=== PATIENT | male | born 1940 | race Caucasian/White ===

== ENCOUNTER 2018-04-01 12:40 | Observation (INO) | payer OTHER, MEDICARE ==
[2018-04-01] MEDS ORDERED: ASPIRIN 81 MG PO STA (12:57)
[2018-04-01] MEDS ORDERED: NITROGLYCERIN OINT 1 INCH/GM PACKET TOPICAL STA (12:57)
--- NOTE | 2018-04-01 13:03 | ED ---
General Adult HPI - General Chief complaint: Chest Pain Stated complaint: chest pain Time Seen by Provider: 04/01/18 12:40 Source: patient, RN notes reviewed Mode of arrival: wheelchair Limitations: no limitations - History of Present Illness Initial comments: This is a 77-year-old male who presents emergency department with past medical history significant for bypass surgery and 2 stent placements since the bypass. Patient also has high blood pressure and high cholesterol. Patient states he hasn't smoked in 35 years. Patient comes in today because he has been having some left-sided chest pain which radiates to his left arm and into his back. Patient states she's been having this for the last 2 days. Patient states the episodes last approximately 10 minutes. Patient noted today that he had chest pain he took a nitroglycerin and it seemed to stop the pain. Patient denies any shortness of breath with the pain patient denies any diaphoretic episodes. Patient denied any nausea vomiting diarrhea. Patient denies any abdominal pain. Patient denies any swelling to the legs. Patient denies any calf tenderness. - Related Data Home Medications Medication Instructions Recorded Confirmed Aspirin 81 mg PO DAILY 12/21/15 04/01/18 Carboxymethylcellulose Sodium 1 drop BOTH EYES Q4H PRN 12/21/15 04/01/18 [Refresh Tears] Isosorbide Mononitrate ER [Imdur] 120 mg PO DAILY 12/21/15 04/01/18 Lisinopril [Prinivil] 10 mg PO DAILY 12/21/15 04/01/18 Loratadine [Claritin] 10 mg PO DAILY 12/21/15 04/01/18 amLODIPine [Norvasc] 5 mg PO DAILY 12/21/15 04/01/18 cycloSPORINE [Restasis] 1 drop BOTH EYES BID 12/21/15 04/01/18 Allergies Allergy/AdvReac Type Severity Reaction Status Date / Time shellfish derived [Shellfish] Allergy Unknown Verified 04/01/18 13:18 [id number] Reductase AdvReac Unknown Verified 04/01/18 13:18 Inhibitor Review of Systems ROS Statement: Those systems with pertinent positive or pertinent negative responses have been documented in the HPI. ROS Other: All systems not noted in ROS Statement are negative. Past Medical History Past Medical History: Coronary Artery Disease (CAD), Chest Pain / Angina, Hyperlipidemia, Hypertension Additional Past Medical History / Comment(s): GOUT History of Any Multi-Drug Resistant Organisms: None Reported Past Surgical History: Coronary Bypass/CABG, Heart Catheterization With Stent Additional Past Surgical History / Comment(s): thoracotomy Past Psychological History: No Psychological Hx Reported Smoking Status: Former smoker Past Alcohol Use History: Rare Past Drug Use History: None Reported General Exam - General Exam Comments Initial Comments: GENERAL: Patient is well-developed and well-nourished. Patient is nontoxic and well- hydrated and is in mild distress. ENT: Neck is soft and supple. No significant lymphadenopathy is noted. Oropharynx is clear. Moist mucous membranes. Neck has full range of motion without eliciting any pain. EYES: The sclera were anicteric and conjunctiva were pink and moist. Extraocular movements were intact and pupils were equal round and reactive to light. Eyelids were unremarkable. PULMONARY: Unlabored respirations. Good breath sounds bilaterally. No audible rales rhonchi or wheezing was noted. CARDIOVASCULAR: There is a regular rate and rhythm without any murmurs gallops or rubs. ABDOMEN: Soft and nontender with normal bowel sounds. No palpable organomegaly was noted. There is no palpable pulsatile mass. SKIN: Skin is clear with no lesions or rashes and otherwise unremarkable. NEUROLOGIC: Patient is alert and oriented x3. Cranial nerves II through XII are grossly intact. Motor and sensory are also intact. Normal speech, volume and content. Symmetrical smile. MUSCULOSKELETAL: Normal extremities with adequate strength and full range of motion. No lower extremity swelling or edema. No calf tenderness. LYMPHATICS: No significant lymphadenopathy is noted PSYCHIATRIC: Normal psychiatric evaluation. Limitations: no limitations Course Vital Signs 04/01/18 04/01/18 04/01/18 12:41 13:12 13:22 Temperature 97.8 F Pulse Rate 78 68 68 Respiratory 18 18 18 Rate Blood Pressure 138/87 132/90 132/90 O2 Sat by Pulse 98 96 96 Oximetry Medical Decision Making - Medical Decision Making This is EKG shows sinus rhythm at 72 bpm WI interval is 254 QRS is 80 QT intervals 398 QTC is 435 per patient's EKG shows no ST segment elevation or depression or T wave abnormalities are noted. Chest x-ray shows no acute normalities. Patient was chest pain free throughout his ER course this was a different type of pain in his normal angina so I considered unstable angina. I started the patient on heparin. Give the patient aspirin Nitropaste as well. I spoke with Mr. Baca hospitalist and admitted the patient I wrote admitting orders. I continue the heparin Nitropaste and aspirin on the floor. I consult cardiology. - Lab Data Result diagrams: 04/01/18 13:09 04/01/18 13:09 Lab Results 04/01/18 04/01/18 04/01/18 Range/Units 13:09 13:09 13:09 WBC 6.1 (3.8-10.6) k/uL RBC 4.60 (4.30-5.90) m/uL Hgb 14.4 (13.0-17.5) gm/dL Hct 42.9 (39.0-53.0) % MCV 93.2 (80.0-100.0) fL MCH 31.3 (25.0-35.0) pg MCHC 33.6 (31.0-37.0) g/dL RDW 13.3 (11.5-15.5) % Plt Count 276 (150-450) k/uL Neutrophils % 54 % Lymphocytes % 28 % Monocytes % 7 % Eosinophils % 7 % Basophils % 1 % Neutrophils # 3.3 (1.3-7.7) k/uL Lymphocytes # 1.7 (1.0-4.8) k/uL Monocytes # 0.4 (0-1.0) k/uL Eosinophils # 0.4 (0-0.7) k/uL Basophils # 0.0 (0-0.2) k/uL PT (9.0-12.0) sec INR (<1.2) APTT (22.0-30.0) sec Sodium 137 (137-145) mmol/L Potassium 5.2 H (3.5-5.1) mmol/L Chloride 107 (98-107) mmol/L Carbon Dioxide 18 L (22-30) mmol/L Anion Gap 12 mmol/L BUN 28 H (9-20) mg/dL Creatinine 1.32 H (0.66-1.25) mg/dL Est GFR (CKD-EPI)AfAm 61 (>60 ml/min/1.73 sqM) Est GFR (CKD-EPI)NonAf 53 (>60 ml/min/1.73 sqM) Glucose 152 H (74-99) mg/dL Calcium 9.5 (8.4-10.2) mg/dL Magnesium 1.9 (1.6-2.3) mg/dL Total Bilirubin 0.6 (0.2-1.3) mg/dL AST 25 (17-59) U/L ALT 25 (21-72) U/L Alkaline Phosphatase 62 (38-126) U/L Total Creatine Kinase 95 (55-170) U/L CK-MB (CK-2) 0.8 (0.0-2.4) ng/mL CK-MB (CK-2) Rel Index 0.8 Troponin I <0.012 (0.000-0.034) ng/mL Total Protein 7.9 (6.3-8.2) g/dL Albumin 4.2 (3.5-5.0) g/dL 04/01/18 Range/Units 13:09 WBC (3.8-10.6) k/uL RBC (4.30-5.90) m/uL Hgb (13.0-17.5) gm/dL Hct (39.0-53.0) % MCV (80.0-100.0) fL MCH (25.0-35.0) pg MCHC (31.0-37.0) g/dL RDW (11.5-15.5) % Plt Count (150-450) k/uL Neutrophils % % Lymphocytes % % Monocytes % % Eosinophils % % Basophils % % Neutrophils # (1.3-7.7) k/uL Lymphocytes # (1.0-4.8) k/uL Monocytes # (0-1.0) k/uL Eosinophils # (0-0.7) k/uL Basophils # (0-0.2) k/uL PT 9.7 (9.0-12.0) sec INR 1.0 (<1.2) APTT 24.4 (22.0-30.0) sec Sodium (137-145) mmol/L Potassium (3.5-5.1) mmol/L Chloride (98-107) mmol/L Carbon Dioxide (22-30) mmol/L Anion Gap mmol/L BUN (9-20) mg/dL Creatinine (0.66-1.25) mg/dL Est GFR (CKD-EPI)AfAm (>60 ml/min/1.73 sqM) Est GFR (CKD-EPI)NonAf (>60 ml/min/1.73 sqM) Glucose (74-99) mg/dL Calcium (8.4-10.2) mg/dL Magnesium (1.6-2.3) mg/dL Total Bilirubin (0.2-1.3) mg/dL AST (17-59) U/L ALT (21-72) U/L Alkaline Phosphatase (38-126) U/L Total Creatine Kinase (55-170) U/L CK-MB (CK-2) (0.0-2.4) ng/mL CK-MB (CK-2) Rel Index Troponin I (0.000-0.034) ng/mL Total Protein (6.3-8.2) g/dL Albumin (3.5-5.0) g/dL Critical Care Time Critical Care Time: Yes Total Critical Care Time: 35 Disposition Clinical Impression: Unstable angina pectoris Disposition: ADMITTED IP TO THIS HOSP Referrals: [facility],Clinic [Primary Care Provider] - 1-2 days Time of Disposition: 15:16
[2018-04-01 13:24] LABS: Basophils % (A) 1 %; Eosinophils # (A) 0.4 k/uL (0-0.7); Eosinophils % (A) 7 %; HCT 42.9 % (39.0-53.0); HGB 14.4 gm/dL (13.0-17.5); Lymphocytes # (A) 1.7 k/uL (1.0-4.8); Lymphocytes % (A) 28 %; MCH 31.3 pg (25.0-35.0); MCHC 33.6 g/dL (31.0-37.0); MCV 93.2 fL (80.0-100.0); Monocytes # (A) 0.4 k/uL (0-1.0); Monocytes % (A) 7 %; Neutrophils # (A) 3.3 k/uL (1.3-7.7); Neutrophils % (A) 54 %; Platelet Count 276 k/uL (150-450); RDW 13.3 % (11.5-15.5); WBC 6.1 k/uL (3.8-10.6)
[2018-04-01 13:33] LABS: Albumin 4.2 g/dL (3.5-5.0); Calcium 9.5 mg/dL (8.4-10.2); Magnesium 1.9 mg/dL (1.6-2.3); Potassium 5.2 mmol/L (3.5-5.1); Total Bilirubin 0.6 mg/dL (0.2-1.3); Total Protein 7.9 g/dL (6.3-8.2)
--- NOTE | 2018-04-01 13:33 | XR ---
EXAMINATION TYPE: XR chest 2V DATE OF EXAM: 04/01/2018 COMPARISON: CXR noted 11-19-2013. HISTORY: Chest and upper back pain. TECHNIQUE: Frontal and lateral views of the chest are obtained. FINDINGS: There is chronic parenchymal change without suspicious new no focal air space opacity, ple ural effusion, or pneumothorax seen. Post CABG changes with B-cell clips and sternal wires is redemon strated. The cardiac silhouette size is stable and mildly enlarged. Old lateral left rib fractures ar e redemonstrated. IMPRESSION: Chronic changes and mild cardiomegaly without acute pulmonary process. No significant c hange from prior chest x-ray.
[2018-04-01 13:35] LABS: Partial Thromboplastin Time 24.4 sec (22.0-30.0); Prothrombin Time 9.7 sec (9.0-12.0)
[2018-04-01 13:55] LABS: Creatine Kinase 95 U/L (55-170)
[2018-04-01 14:09] LABS: Creatine Kinase MB 0.8 ng/mL (0.0-2.4); Troponin I <0.012 ng/mL (0.000-0.034)
[2018-04-01] MEDS ORDERED: NITROGLYCERIN SL TABS 0.4 MG TAB SUBLINGUAL PRN (15:28)
[2018-04-01] MEDS ORDERED: NITROGLYCERIN OINT 1 INCH/GM PACKET TOPICAL SCH (18:00)
[2018-04-01] MEDS ORDERED: ARTIFICIAL TEARS-HYPROMELLOSE DROPS 15 ML BTL BOTH EYES PRN (19:04)
[2018-04-01] MEDS ORDERED: HYDROcodone/APAP 5-325MG 1 EACH TAB PO PRN (19:06)
[2018-04-01] MEDS ORDERED: TEMAZEPAM 15 MG CAP PO PRN (19:06)
[2018-04-01] MEDS ORDERED: ALPRAZolam 0.25 MG TAB PO PRN (19:06)
[2018-04-01 20:01] LABS: Creatine Kinase 79 U/L (55-170)
[2018-04-01 20:14] LABS: Creatine Kinase MB 0.7 ng/mL (0.0-2.4); Troponin I <0.012 ng/mL (0.000-0.034)
[2018-04-01] MEDS: INSULIN ASPART 100 UNIT/ML 1 ML 10 ML VIAL SQ SCH (20:23)
[2018-04-01 20:26] LABS: Glucose,Whole Blood 162 mg/dL (75-99)
[2018-04-01] MEDS: cycloSPORINE 0.05% OPHTH 0.4 ML DROPERETTE BOTH EYES SCH (20:43)
--- NOTE | 2018-04-01 20:52 | HP ---
HISTORY AND PHYSICAL DATE OF SERVICE: 04/01/2018 CHIEF COMPLAINT: Chest pain. HISTORY OF PRESENT ILLNESS: This 76-year-old gentleman with a past medical history of CAD, CABG, stent, history of diabetes, hypertension, hyperlipidemia, being followed by [facility] and Dr. Zuniga in the outpatient setting apparently had chest pain yesterday. The pain was felt in the anterior part of the chest which radiated to the back, which is almost like discomfort and the pain is also radiating into left arm and back also and the patient came to [facility] and was admitted for further evaluation and treatment. As mentioned earlier, the patient was having the pain on and off for the last 2 days. There is no history of fever, rigors. No history of headache, loss of consciousness, seizures. Initial troponins are negative. Of note, the patient was also noted to have mild hyperkalemia recently in the outpatient setting. PAST MEDICAL HISTORY: History of CAD, CABG, stent, history of chest pain, history of diabetes, hypertension, hyperlipidemia, DJD, sleep apnea, history of gout. MEDICATIONS ARE: 1. Restasis 1 drop both eyes b.i.d. 2. Claritin 10 mg. 3. Prinivil 10 mg p.o. daily. 4. Imdur 120 mg p.o. daily. 5. Refresh 1 drop q.4h p.r.n. 6. Aspirin 81 mg daily. 7. Norvasc 5 mg daily. ALLERGIES: SHELLFISH AND STATINS. FAMILY HISTORY: History of CVA, TIA, history of cataract. SOCIAL HISTORY: Previous history of smoker. Occasional alcohol intake. REVIEW OF SYSTEMS: ENT: No diminished hearing or vision. CARDIOVASCULAR: As mentioned earlier. RESPIRATORY: As mentioned earlier. GI: No nausea or vomiting. no dysuria. Nervous system: No numbness or weakness. Allergy/Immunology: No asthma or hayfever. Musculoskeletal as mentioned earlier. Hematology/Oncology: No history of anemia. Endocrine: No history of diabetes or hypothyroidism. Constitutional: As mentioned earlier. Dermatology: Negative. Rheumatology: Negative. PSYCHIATRY: As mentioned earlier. PHYSICAL EXAMINATION: Alert, oriented x3. Pulse 76. Blood pressure 151/75, respiration 18, temperature 97.5, pulse ox 97% on room air. HEENT: Conjunctivae normal. Oral mucosa moist. Neck is no jugular venous distention. No carotid bruit. No lymph node enlargement. Cardiovascular: S1, S2 muffled. RESPIRATORY: Breath sounds diminished in the bases. No rhonchi. No crackles. ABDOMEN: Soft, nontender. No mass palpable. LEGS: No edema. No swelling. NERVOUS SYSTEM: Higher functions as mentioned earlier. Moves all 4 limbs. No focal motor or sensory deficits. Lymphatics: No lymph nodes palpable in the neck, axillae or groin. Skin: No ulcer, no rash. No bleeding. LABS: CBC within normal limits. Sodium 137, potassium 5.2, creatinine is 1.32, glucose 152. ASSESSMENT: 1. Chest pain, possible unstable angina. 2. Increased creatinine with possibly chronic kidney stage 3. 3. Mild hyperkalemia. 4. Coronary artery disease, coronary artery bypass grafting stent history. 5. Diabetes mellitus type 2. 6. Hypertension. 7. Degenerative joint disease. 8. Sleep apnea. 9. History of gout. 10.History of coronary artery disease, coronary artery bypass grafting/stent. 11.Remote history of nicotine dependence. RECOMMENDATIONS AND DISCUSSION: This 77-year-old gentleman who presented with multiple complex medical issues, we will monitor the patient closely, continue the current medications, management and symptomatic treatment. Cardiology consultation. Possible stress test. Rule out myocardial infarction. The patient apparently is on a ketogenic diet. We will repeat lytes and continue to monitor. Otherwise, prognosis guarded because of multiple complex medical issues. See orders for details. Further recommendations to follow. A copy of dictation being forwarded to Dr. Zuniga who is the primary physician. MMODL / IJN: [id number] /
[2018-04-01] MEDS ORDERED: ISOSORBIDE MONONITRATE ER 60 MG TAB.ER.24H PO SCH (21:15)
[2018-04-01 21:54] LABS: Appearance,Urine Clear (Clear); Bilirubin,Urine Negative (Negative); Blood,Urine Negative (Negative); Color,Urine Yellow; Glucose,Urine (UA) Negative (Negative); Ketones,Urine Negative (Negative); Leukocyte Esterase,Urine Negative (Negative); Nitrite,Urine Negative (Negative); PH, Urine 5.5 (5.0-8.0); Protein,Urine Negative (Negative); Specific Gravity,Urine 1.018 (1.001-1.035); Urobilinogen,Urine <2.0 mg/dL (<2.0)
[2018-04-01 23:59] VITALS: RESP 16
[2018-04-02 01:58] LABS: Creatine Kinase 73 U/L (55-170)
[2018-04-02 02:12] LABS: Creatine Kinase MB 0.7 ng/mL (0.0-2.4); Troponin I <0.012 ng/mL (0.000-0.034)
[2018-04-02 04:18] LABS: Hemoglobin A1C 8.5 % (4.0-6.0)
[2018-04-02 08:52] LABS: Glucose,Whole Blood 204 mg/dL (75-99)
[2018-04-02] MEDS ORDERED: ISOSORBIDE MONONITRATE ER 60 MG TAB.ER.24H PO SCH (09:00)
[2018-04-02] MEDS ORDERED: amLODIPine 5 MG TAB PO SCH (09:00)
[2018-04-02] MEDS ORDERED: ASPIRIN 325 MG TAB PO SCH (09:00)
[2018-04-02] MEDS ORDERED: LORATADINE 10 MG TAB PO SCH (09:00)
[2018-04-02 10:13] LABS: Calcium 9.7 mg/dL (8.4-10.2); Potassium 5.6 mmol/L (3.5-5.1)
[2018-04-02 12:08] LABS: Glucose,Whole Blood 174 mg/dL (75-99)
[2018-04-02 12:20] VITALS: BP 149/89; PULSE 65; TEMP 98.2
--- NOTE | 2018-04-02 12:23 | ECHOF ---
Referral Reason:cp MEASUREMENTS -------- HEIGHT: 180.3 cm WEIGHT: 93.0 kg BP: RVIDd: 4.1 cm (< 3.3) IVSd: 1.5 cm (0.6 - 1.1) LVIDd: 4.1 cm (3.9 - 5.3) LVPWd: 1.6 cm (0.6 - 1.1) IVSs: 2.0 cm LVIDs: 2.2 cm LVPWs: 2.4 cm Ao Diam: 3.3 cm (2.0 - 3.7) AV Cusp: 1.8 cm (1.5 - 2.6) LA Diam: 4.1 cm (2.7 - 3.8) EPSS: 0.4 cm MV E Miguel: 0.58 m/s MV DecT: 137 ms MV A Miguel: 0.88 m/s MV E/A Ratio: 0.66 RAP: 5.00 mmHg RVSP: 34.33 mmHg MV EF SLOPE: 54.11 mm/s (70 - 150) MV EXCURSION: 1.18 cm (> 18.000) FINDINGS -------- Sinus rhythm. This was a technically difficult study with suboptimal views. The left ventricular size is normal. There is mild concentric left ventricular hypertrophy. Overa ll left ventricular systolic function is normal with, an EF between 55 - 60 %. The right ventricle is moderately enlarged. The left atrium is normal in size. The right atrium is normal in size. XX ml of Lumason was utilized for enhancement of images. The aortic valve is trileaflet and appears structurally normal. Mild mitral regurgitation is present. Mild tricuspid regurgitation present. The right ventricular systolic pressure, as measured by Doppl er, is 34.33mmHg. Pulmonic valve appears structurally normal. The aortic root size is normal. Normal inferior vena cava with normal inspiratory collapse consistent with estimated right atrial pre ssure of 5 mmHg. The pericardium is normal. CONCLUSIONS -------- 1. Sinus rhythm. 2. This was a technically difficult study with suboptimal views. 3. The left ventricular size is normal. 4. There is mild concentric left ventricular hypertrophy. 5. Overall left ventricular systolic function is normal with, an EF between 55 - 60 %. 6. The right ventricle is moderately enlarged. 7. The left atrium is normal in size. 8. The right atrium is normal in size. 9. XX ml of Lumason was utilized for enhancement of images. 10. The aortic valve is trileaflet and appears structurally normal. 11. Mild mitral regurgitation is present. 12. Mild tricuspid regurgitation present. 13. The right ventricular systolic pressure, as measured by Doppler, is 34.33mmHg. 14. Pulmonic valve appears structurally normal. 15. The aortic root size is normal. 16. Normal inferior vena cava with normal inspiratory collapse consistent with estimated right atrial pressure of 5 mmHg. 17. The pericardium is normal. RESEARCH NURSE PRACTITIONER: Fe Gonzalez RDCS
--- NOTE | 2018-04-02 12:40 | P.CRDCN ---
History of Present Illness History of present illness: This is a pleasant 77-year-old male past medical history significant for coronary artery disease status post bypass grafting performed at the [facility], exact details unavailable to me. He also has hypertension, dyslipidemia, diabetes mellitus, gout and obstructive sleep apnea. He follows with the [facility] for his cardiology needs. We have been asked to see him in consultation for symptoms of chest discomfort. He states Saturday night he started feeling a sharp pain in the left scapular region with radiation to the left shoulder and down the left upper arm. The symptoms were intermittent in nature with no specific aggravating or alleviating factors. Earlier on Saturday morning him and his were carrying an oven range down to the basement using straps. He states his became unsteady a few times and he had to compensate for her dropping some weight. Therefore he has attributed his pain to a muscular injury. He states it feels like a pinched nerve. He denies ever having chest pain, shortness of breath, dizziness or palpitations. He went to the [place] [facility] in [place] on Saturday for a routing blood draw. He was called yesterday and asked to return because his potassium was high and they wanted to do a redraw. Records indicate his level was 5.3. He was there getting his blood drawn and they asked if he has had any chest discomfort and he explained the back pain he has been feeling. They recommended he come to the ED for evaluation as well as take a SL nitroglycerin. He took 1 nitro and his pain in the back subsided by 80 %, then on the way to the hospital in the car he took another nitro. By the time he got here he was pain free. No further pain since admission. He states he underwent cardiac catheterization last year at the [facility] and was told he does have progression of his disease however at that time maximum medical therapy was recommended. Will attempt to obtain those records for review. He states earlier this year he was seen at [facility] in [place] for dizziness and his beta blockers were discontinued. Echocardiogram obtained reveals preserved left ventricular systolic function with ejection fraction 55-60%, mild MR and mild TR noted. EKG reveals sinus mechanism with first-degree AV block. Chest x-ray is negative for an acute cardiopulmonary process. Laboratory data reviewed, WBC 6.1, hemoglobin 14.4, platelets 276, sodium 136, potassium on admission 5. 2 repeat this morning 5.6, creatinine on admission 1.3 2 repeat this morning 1.47, magnesium 1.9, cardiac enzymes negative 3, LDL 160 and HDL 41. Current cardiac medications include amlodipine 5 mg daily, aspirin 81 mg daily, Imdur 120 mg daily, lisinopril 10 mg daily. He is intolerant to statins. At the time of my exam: CONSTITUTIONAL: Denies fever. Denies chills. EYES: Denies blurred vision. Denies vision changes. Denies eye pain. EARS, NOSE, MOUTH & THROAT: Denies headache. Denies sore throat. Denies ear pain. CARDIOVASCULAR: Denies chest pain. Denies shortness of breath. Denies orthopnea. Denies PND. Denies palpitations. RESPIRATORY: Denies cough. GASTROINTESTINAL: Denies abdominal pain. Denies diarrhea. Denies constipation. Denies nausea. Denies vomiting. MUSCULOSKELETAL: Denies myalgias. INTEGUMENTARY: Denies pruitis. Denies rash. NEUROLOGIC: Denies numbness. Denies tingling. Denies weakness. PSYCHIATRIC: Denies anxiety. Denies depression. ENDOCRINE: Denies fatigue. Denies weight change. Denies polydipsia. Denies polyurina. GENITOURINARY: Denies burning, hematuria or urgency with micturation. HEMATOLOGIC: Denies history of anemia. Denies bleeding. Blood pressure 149/89 heart rate 65 afebrile maintaining oxygen saturation on room air GENERAL: This is a 77-year-old male in no apparent distress at the time of my examination. HEENT: Head is atraumatic, normocephalic. Pupils are equal, round. Sclerae anicteric. Conjunctivae are clear. Mucous membranes of the mouth are moist. Neck is supple. There is no jugular venous distention. No carotid bruit is heard. LUNGS: Clear to auscultation no wheezes, rales or rhonchi. No chest wall tenderness is noted on palpation or with deep breathing. HEART: Regular rate and rhythm without murmurs, rubs or gallops. S1 and S2 heard. ABDOMEN: Soft, nontender. Bowel sounds are heard. No organomegaly noted. EXTREMITIES: No evidence of peripheral edema and no calf tenderness noted. VASCULAR: Radial and dorsalis pedis pulses palpated, no evidence of clubbing. NEUROLOGIC: Patient is awake, alert and oriented x3. ASSESSMENT Chest pain, atypical. Acute coronary event has been ruled out. History of coronary artery disease status post bypass grafting. Exact details unavailable at this time. Hyperkalemia Dyslipidemia Hypertension Chronic kidney disease, GFR 46. Stage IIIa Obstructive sleep apnea PLAN We have attempted to obtain records from the [place] of recent catheterization but have been unsuccessful. Get him up and moving around the unit and assess for ongoing discomfort. Hold lisinopril for hyperkalemia. If he is chest pain free with acitivy and on maximum medical therapy he is stable from a cardiac perspective. Beta blockers are contraindicated. Follow up appointment in the office with Dr. Alva in 1 week. Thank you kindly for this consultation. Nurse Practitioner note has been reviewed, I agree with a documented findings and plan of care. Patient was seen and examined. Past Medical History Past Medical History: Coronary Artery Disease (CAD), Chest Pain / Angina, Diabetes Mellitus, Hyperlipidemia, Hypertension, Osteoarthritis (OA), Sleep Apnea/CPAP/BIPAP Additional Past Medical History / Comment(s): GOUT,"forgetfullness", allergies/ sinus problems in the past was taking meds for dm-2 no longer taking meds.now diet controlled dm, has a cpap but does'nt it."brain anuerysm, aaa History of Any Multi-Drug Resistant Organisms: None Reported Past Surgical History: Coronary Bypass/CABG, Heart Catheterization With Stent Additional Past Surgical History / Comment(s): thoracotomy,colonoscopy Past Anesthesia/Blood Transfusion Reactions: No Reported Reaction Date of Last Stent Placement:: unk Smoking Status: Former smoker - Past Family History Mother Family Medical History: CVA/TIA Additional Family Medical History / Comment(s): cataracts. at age 58 from a stroke Father Family Medical History: Myocardial Infarction (SD) Medications and Allergies Home Medications Medication Instructions Recorded Confirmed Type Aspirin 81 mg PO DAILY 12/21/15 04/01/18 History Carboxymethylcellulose Sodium 1 drop BOTH EYES Q4H PRN 12/21/15 04/01/18 History [Refresh Tears] Isosorbide Mononitrate ER [Imdur] 120 mg PO DAILY 12/21/15 04/01/18 History Lisinopril [Prinivil] 10 mg PO DAILY 12/21/15 04/01/18 History Loratadine [Claritin] 10 mg PO DAILY 12/21/15 04/01/18 History amLODIPine [Norvasc] 5 mg PO DAILY 12/21/15 04/01/18 History cycloSPORINE [Restasis] 1 drop BOTH EYES BID 12/21/15 04/01/18 History Allergies Allergy/AdvReac Type Severity Reaction Status Date / Time shellfish derived [Shellfish] Allergy Unknown Verified 04/01/18 13:18 Mhwvqvy-Dzt-Air Reductase AdvReac Unknown Verified 04/01/18 13:18 Inhibitor Physical Exam Vitals: Vital Signs Temp Pulse Pulse Pulse Resp BP BP 04/02/18 11:22 16 04/02/18 08:00 97.7 F 63 16 123/69 04/02/18 04:00 97.4 F L 70 16 110/66 04/02/18 03:37 16 04/02/18 00:00 16 04/01/18 23:58 98.3 F 76 16 126/55 04/01/18 20:00 18 04/01/18 18:32 97.5 F L 76 18 151/75 04/01/18 18:10 75 18 118/82 04/01/18 15:28 78 18 127/76 04/01/18 13:22 68 18 132/90 04/01/18 13:12 68 18 132/90 04/01/18 12:41 97.8 F 78 18 138/87 Pulse Ox 04/02/18 11:22 04/02/18 08:00 97 04/02/18 04:00 96 04/02/18 03:37 04/02/18 00:00 04/01/18 23:58 93 L 04/01/18 20:00 04/01/18 18:32 97 04/01/18 18:10 97 04/01/18 15:28 98 04/01/18 13:22 96 04/01/18 13:12 96 04/01/18 12:41 98 Intake and Output 04/01/18 04/02/18 04/02/18 22:59 06:59 14:59 Other: # Voids 1 Weight 93.3 kg Results 04/01/18 13:09 04/02/18 09:18 Cardiac Enzymes 04/01/18 04/01/18 04/01/18 Range/Units 13:09 13:09 19:18 AST 25 (17-59) U/L CK-MB (CK-2) 0.8 0.7 (0.0-2.4) ng/mL Troponin I <0.012 <0.012 (0.000-0.034) ng/mL 04/02/18 Range/Units 01:20 AST (17-59) U/L CK-MB (CK-2) 0.7 (0.0-2.4) ng/mL Troponin I <0.012 (0.000-0.034) ng/mL Coagulation 04/01/18 Range/Units 13:09 PT 9.7 (9.0-12.0) sec APTT 24.4 (22.0-30.0) sec Lipids 04/02/18 Range/Units 09:18 Triglycerides 204 H (<150) mg/dL Cholesterol 242 H (<200) mg/dL HDL Cholesterol 41 (40-60) mg/dL CBC 04/01/18 Range/Units 13:09 WBC 6.1 (3.8-10.6) k/uL RBC 4.60 (4.30-5.90) m/uL Hgb 14.4 (13.0-17.5) gm/dL Hct 42.9 (39.0-53.0) % Plt Count 276 (150-450) k/uL Comprehensive Metabolic Panel 04/01/18 04/02/18 Range/Units 13:09 09:18 Sodium 137 136 L (137-145) mmol/L Potassium 5.2 H 5.6 H (3.5-5.1) mmol/L Chloride 107 105 (98-107) mmol/L Carbon Dioxide 18 L 22 (22-30) mmol/L BUN 28 H 31 H (9-20) mg/dL Creatinine 1.32 H 1.47 H (0.66-1.25) mg/dL Glucose 152 H 210 H (74-99) mg/dL Calcium 9.5 9.7 (8.4-10.2) mg/dL AST 25 (17-59) U/L ALT 25 (21-72) U/L Alkaline Phosphatase 62 (38-126) U/L Total Protein 7.9 (6.3-8.2) g/dL Albumin 4.2 (3.5-5.0) g/dL Current Medications Generic Name Dose Route Start Last Admin Trade Name Jimi PRN Reason Stop Dose Admin Hydrocodone Bitart/Acetaminophen 1 each 04/01/18 19:06 Volcano 5-325 PO Q6HR PRN Pain Alprazolam 0.25 mg 04/01/18 19:06 Xanax PO TID PRN Anxiety Amlodipine Besylate 5 mg 04/02/18 09:00 Norvasc PO DAILY BAKARI Artificial Tears 1 drops 04/01/18 19:04 Artificial Tear Drops BOTH EYES Q4H PRN Dry Eye(s) Aspirin 325 mg 04/02/18 09:00 Aspirin PO DAILY BAKARI Cyclosporine 1 drops 04/01/18 21:00 04/01/18 20:43 Restasis 0.05% Ophth Soln BOTH EYES 1 drops BID BAKARI Administration Insulin Aspart 0 unit 04/01/18 21:00 04/01/18 20:23 Novolog SQ Not Given ACHS [facility] Protocol Isosorbide Mononitrate 60 mg 04/02/18 09:00 Imdur PO BID BAKARI Loratadine 10 mg 04/02/18 09:00 Claritin PO DAILY BAKARI Nitroglycerin 0.4 mg 04/01/18 15:28 Nitrostat SUBLINGUAL Q5M PRN Chest Pain Temazepam 15 mg 04/01/18 19:06 Restoril PO HS PRN Insomnia Intake and Output 04/01/18 04/02/18 04/02/18 22:59 06:59 14:59 Other: # Voids 1 Weight 93.3 kg 04/01/18 13:09 04/02/18 09:18
[2018-04-02 12:44] LABS: Basophils % (A) 1 %; Eosinophils # (A) 0.4 k/uL (0-0.7); Eosinophils % (A) 8 %; HGB 13.9 gm/dL (13.0-17.5); Lymphocytes # (A) 1.5 k/uL (1.0-4.8); Lymphocytes % (A) 29 %; MCH 31.4 pg (25.0-35.0); MCHC 33.1 g/dL (31.0-37.0); MCV 95.1 fL (80.0-100.0); Mean Platelet Volume 7.9; Monocytes # (A) 0.4 k/uL (0-1.0); Monocytes % (A) 8 %; Neutrophils # (A) 2.6 k/uL (1.3-7.7); Neutrophils % (A) 51 %; Platelet Count 217 k/uL (150-450); RBC 4.42 m/uL (4.30-5.90); RDW 13.4 % (11.5-15.5)
[2018-04-02] MEDS: INSULIN ASPART 100 UNIT/ML 1 ML 10 ML VIAL SQ SCH (12:51)
[2018-04-02] MEDS: cycloSPORINE 0.05% OPHTH 0.4 ML DROPERETTE BOTH EYES SCH (12:57)
--- NOTE | 2018-04-03 07:30 | DS ---
DISCHARGE SUMMARY FINAL DIAGNOSES: 1. Chest pain, myocardial infarction ruled out. 2. Increased creatinine with possible chronic kidney disease, Stage 3. 3. Mild hyperkalemia. 4. Coronary artery disease, coronary artery bypass grafting. 5. Diabetes mellitus type 2. 6. Hypertension. 7. Degenerative joint disease. 8. Sleep apnea. 9. History of gout. 10.History of nicotine dependence. Patient discharged with guarded prognosis. HISTORY OF PRESENT ILLNESS: This 77-year-old gentleman with past medical problems as mentioned, being followed at the [facility] and Dr. Zuniga in the outpatient setting, presented with chest pain, myocardial infarction ruled out. Cardiology recommended outpatient follow up. Potassium was elevated. The lisinopril was stopped and Norvasc dose was increased. Potassium 5.2, creatinine ( ). Recommend outpatient followup. The patient's cholesterol is also elevated to 240, but the patient is allergic to statins. Red yeast rice may be tried. On exam, vital signs are stable. Cardiovascular: S1, S2. Abdomen: Soft. DISCHARGE ADVICE AND MEDICATIONS: 1. Diet cardiac, low-fat, low-cholesterol. Follow up with Dr. Alva and [facility]. MEDICATION: 1. Aspirin 81 mg daily. 2. Refresh tears. 4. Imdur 20 mg p.o. daily. 5. Claritin 10 mg. 6. Norvasc 10 mg p.o. daily. MMODL / IJN: [id number] / MTDD
== END 2018-04-02 16:22 | disposition home or self-care (01) ==
LOC: EC 12:40 → 1SOBS 15:29
PROVIDERS: ADMIT Hospitalist; ATTEND Hospitalist
DX: R07.89 Other chest pain (principal); I25.10 Atherosclerotic heart disease of native coronary artery without angina pectoris; E78.5 Hyperlipidemia, unspecified; M10.9 Gout, unspecified; G47.33 Obstructive sleep apnea (adult) (pediatric); E11.22 Type 2 diabetes mellitus with diabetic chronic kidney disease; E78.00 Pure hypercholesterolemia, unspecified; E87.5 Hyperkalemia; I12.9 Hypertensive chronic kidney disease with stage 1 through stage 4 chronic kidney disease, or unspecified chronic kidney disease; N18.3 Chronic kidney disease, stage 3 (moderate); I44.0 Atrioventricular block, first degree; M19.90 Unspecified osteoarthritis, unspecified site; Z79.82 Long term (current) use of aspirin; Z79.899 Other long term (current) drug therapy; Z87.891 Personal history of nicotine dependence; Z95.1 Presence of aortocoronary bypass graft; Z88.8 Allergy status to other drugs, medicaments and biological substances; Z95.5 Presence of coronary angioplasty implant and graft; Z82.3 Family history of stroke; Z82.49 Family history of ischemic heart disease and other diseases of the circulatory system
CPT/HCPCS: 99291; 36415; 93005; 93306; 80061; 80053; 80048; 82550 ×2; 82553 ×2; 83735; 84484 ×2; 85025 ×2; 85610; 85730; 81003; 83036; 71046; G0378 ×2; Q9950

== ENCOUNTER → 2018-09-08 | Outpatient (CLI) | payer OTHER ==
--- NOTE | 2018-09-08 13:09 | MR ---
EXAMINATION TYPE: MR shoulder LT wo con DATE OF EXAM: 09/08/2018 COMPARISON: Left shoulder x-ray March 25, 2014 HISTORY: Left shoulder pain TECHNIQUE: Multiplanar, multisequence imaging of the left shoulder is performed without contrast. FINDINGS: Rotator Cuff: There is full-thickness tear involving anterior 1/5 of the supraspinatus tendon seen be st coronal image 12 and sagittal image 11. Remainder supraspinatus tendon is intact with increased si gnal. Infraspinatus tendon is intact. Subscapularis tendon is intact. Rotator cuff muscle bulk is pre served. Acromioclavicular Joint: Moderate to severe narrowing with moderate capsular hypertrophy and mild to moderate spurring at acromioclavicular joint is present. Underlying fat plane is maintained. Distal a cromion morphology is unremarkable. Glenohumeral Joint: Small to moderate glenohumeral joint effusion with mild to moderate narrowing. No significant spurring. Slightly high riding humeral head is present. Labrum: Degenerative tear superior labrum is incidentally noted. Biceps Tendon: The long head of biceps is in normal location within bicipital groove. Increased signa l intracapsular portion is felt present though it is poorly visualized. Bone marrow signal: No focal abnormal marrow signal is appreciated. Other: No additional significant abnormality is appreciated. IMPRESSION: 1. Supraspinatus Tendinosis along with Full-thickness tear involving the anterior portion of supraspi natus tendon. Slightly high riding humeral head. 2. Fairly moderate to severe AC joint arthropathy with moderate glenohumeral joint arthropathy. 3. Probable significant partial tear intracapsular portion of long head of biceps tendon.
== END | disposition home or self-care (01) ==
LOC: RADMRIMAIN 10:41
PROVIDERS: ATTEND Physician Assistant Medical
DX: M75.122 Complete rotator cuff tear or rupture of left shoulder, not specified as traumatic (principal); M19.012 Primary osteoarthritis, left shoulder; M67.814 Other specified disorders of tendon, left shoulder

== ENCOUNTER → 2018-10-14 | Outpatient (CLI) | payer OTHER ==
--- NOTE | 2018-10-14 09:19 | XR ---
EXAMINATION TYPE: XR shoulder limited LT DATE OF EXAM: 10/14/2018 COMPARISON: 03/25/2014 HISTORY: Pain TECHNIQUE: Three views are submitted. FINDINGS: The osseous structures are intact. There is no acute fracture or dislocation. Arthropathy of the AC joint.. There appears to be a rounded nodule in the left lower lobe. IMPRESSION: 1. AC joint arthropathy can be associated with rotator cuff disease correlate clinically.. 2. There appears to be a pulmonary nodule in the left lower lobe measuring approximately [address] sca n of the chest recommended.
== END | disposition home or self-care (01) ==
LOC: RADXRMAIN 08:50
PROVIDERS: ATTEND Orthopaedic Surgery
DX: M19.012 Primary osteoarthritis, left shoulder (principal)

== ENCOUNTER 2019-01-14 07:53 | Day surgery (SDC) | payer OTHER ==
[2019-01-06 16:22] VITALS: BMI 29.5
--- NOTE | 2019-01-13 17:15 | HP ---
HISTORY AND PHYSICAL DATE OF SURGERY: 01/14/2019 Bobby Jones is a 78-year-old patient seen with progressive left shoulder pain. We discussed options for treatment. He elected to proceed with arthroscopy. Consent was obtained. Medical clearance was provided by the [place]. PAST MEDICAL HISTORY: Hypertension. PAST SURGICAL HISTORY: Cardiac stent placement and bypass surgery. DAILY MEDICATIONS: 1. Antihypertensive. 2. Aleve. 3. Aspirin. ALLERGIES: STATINS. SOCIAL HISTORY: He denies tobacco use. PHYSICAL EVALUATION OF THE LEFT SHOULDER: Flexion is 130, abduction 70, external rotation 40. Impingement is positive at 70 degrees. Drop-arm sign positive. Distal neurovascular exam intact. RADIOGRAPHS: Previous left shoulder radiographs revealed a type 2 anterior acromion, acromioclavicular joint osteoarthritis and cystic changes of the tuberosity. Left shoulder MRI revealed rotator cuff tear, acromioclavicular osteoarthritis and partial biceps tendon tear. IMPRESSION: 1. Left shoulder impingement with rotator cuff tear. 2. Left shoulder acromioclavicular joint osteoarthritis. 3. Left shoulder partial biceps tendon tear. PLAN: Left shoulder arthroscopy, subacromial decompression, probable arthroscopic rotator cuff repair, probable Kellie procedure, possible biceps tenotomy and debridement. MMODL / IJN: [id number] /
[~2019-01-14 07:53] MED LIST: DEXAMETHASONE SOD PHOSPHATE 10 MG/ML 1 ML VIAL IV ONE; HYDROmorphone 0.5 MG/0.5 ML SYRINGE IVP PRN; LACTATED RINGERS 1,000 ML IV SCH; MIDAZOLAM 2 MG/2 ML VIAL IV PRN; ONDANSETRON 4 MG/2 ML VIAL IVP ONE; SCOPOLAMINE 1.5MG/72HR PATCH TRANSDERM ONE
[2019-01-14 08:52] VITALS: RESP 16
[2019-01-14] MEDS ORDERED: LIDOCAINE 1% 20 ML VIAL (10MG/ML) FOR IV START INTRADERMA ONE (09:12)
[2019-01-14 09:13] LABS: Glucose,Whole Blood 131 mg/dL (75-99)
[2019-01-14] MEDS ORDERED: fentaNYL (PF) 50 MCG/ML 2 ML AMP IVP ONE (09:18)
--- NOTE | 2019-01-14 09:52 | P.ANPRN ---
Procedure Note - Anesthesia - Nerve Block Performed Left Interscalene Single Time Out Performed: Yes Date of Procedure: 01/14/19 Location of Patient Procedure: PreOp Indication: Acute Post-Operative Pain Specifically requested for management of pain by DrDarryn: Devin Buitrago Sedation Type: Sedate with meaningful contact maintained Preparation: Sterile Prep Position: Supine Catheter: None Needle Types: Pajunk Needle Gauge: Other (see comment) (22) Ultrasound used to visualize needle placement: Yes Ultrasound used to observe medication spread: Yes Injectate: 0.5% Ropivacaine (see comment for volume) (20cc) Blood Aspirated: No Pain Paresthesia on Injection Noted: No Resistance on Injection: Normal Image Stored and Saved: Yes Events: Uneventful and Well Tolerated
[2019-01-14] MEDS ORDERED: PROPOFOL 10 MG/ML 20 ML VIAL IV ONE (10:23)
[2019-01-14] MEDS ORDERED: LIDOCAINE 1% INJ 10MG/ML (20 ML MDV) ONE (10:23)
[2019-01-14] MEDS ORDERED: MIDAZOLAM 2 MG/2 ML VIAL ONE (10:23)
[2019-01-14] MEDS ORDERED: SUCCINYLCHOLINE CHLORIDE 100 MG/5 ML SYR IV ONE (10:23)
[2019-01-14] MEDS ORDERED: fentaNYL (PF) 50 MCG/ML 2 ML AMP ONE (10:23)
[2019-01-14] MEDS ORDERED: ePHEDrine SULFATE/0.9% NACL/PF 50 MG/5 ML SYRINGE IV ONE (10:23)
[2019-01-14] MEDS ORDERED: ROPIVACAINE 5 MG/ML 30 ML VIAL ONE (10:23)
[2019-01-14] MEDS ORDERED: LACTATED RINGERS 1,000 ML IV ONE (10:59)
[2019-01-14 12:52] VITALS: TEMP 96.8
--- NOTE | 2019-01-14 12:52 | P.OP ---
Date of Procedure: 01/14/19 Preoperative Diagnosis: Left shoulder impingement Postoperative Diagnosis: 1. Left shoulder rotator cuff tear 2. Left shoulder impingement 3. Left shoulder acromioclavicular joint osteoarthritis 4. Left shoulder partial long head biceps tendon tear 5. Left shoulder superficial labral tear Procedure(s) Performed: 1. Left shoulder arthroscopic rotator cuff repair 2. Left shoulder arthroscopic subacromial decompression 3. Left shoulder arthroscopic Kellie procedure 4. Left shoulder arthroscopic biceps tenotomy 5. Left houlder arthroscopic debridement labral tear Implants: 3Arthrex swivel lock anchors Anesthesia: GETA, regional (Interscalene block) Surgeon: Devin Buitrago Proof Clerk #1: Fish Goodwin Estimated Blood Loss (ml): 10 Pathology: none sent Condition: stable Disposition: PACU Indications for Procedure: 75-year-old patient seen with progressive left shoulder pain. After treatment options were discussed, he elected to proceed with arthroscopy. Operative Findings: See description of procedure Description of Procedure: Patient underwent an interscalene block by department of anesthesia. The patient was then taken to the operative suite. The patient underwent a general anesthetic by the department of anesthesia. The patient was placed into a lateral position and secured. There was appropriate padding of the bony prominence. Left shoulder was then prepped and draped in normal sterile orthopedic fashion. We placed the extremity in 10 pounds of longitudinal traction. A posterior incision was now made for a posterior working portal site. The trocar and cannula were inserted into the glenohumeral joint. Arthroscopy was initiated. Spinal needle was now inserted anteriorly, to ascertain the anterior working portal site. An incision was now made in that area, a trocar was inserted followed by a probe. There was superficial tearing of the labrum. There was partial tearing of long head biceps tendon with hyperemia. There was a massive retracted rotator cuff tear I could visualize from the glenohumeral side. I performed an arthroscopic biceps tenotomy. I debrided that superficial labral tear getting down to stable labral tissue. The residual labrum was stable. Instruments now removed from glenohumeral joint. Utilizing the posterior working portal site, the trocar and cannula were inserted into the subacromial space. Arthroscopy initiated. I made an incision 2 fingerbreadths lateral to the acromion. I introduced my trocar followed by my ArthroCare ablator. I now began ablating thick subacromial bursal tissue, which exposed the undersurface of the anterior acromion. There was diminished subacromial space. There was a very prominent anterior acromion. A motorized bur was introduced and a subacromial decompression was performed. I also excised some osteophytes off the inferior aspect of the distal clavicle. The AC joint was visualized and noted to be fairly arthritic. The motorized bur was introduced in the anterior portal site and a Kellie procedure was performed without difficulty, decompressing the AC joint nicely. I turned my attention to the rotator cuff. There was a massive retracted rotator cuff tendon tear. I could not pull it over the footprint. I now began meticulously freeing up the tendon proximally. I worked on this extensively until I could just barely pull the tendon anteriorly to the footprint articular interface. This was as far as I could pull the tendon with a significant meticulous released. I abraded the footprint with a motorized bur. I now with the assistance and Gavin PIRES passed 2 intersubstance sutures at the apex of the tear. I now passed 5 everted mattress sutures through these mobilized rotator cuff tendon. I passed an additional sutures anteriorly. I now picked appropriate sutures and introduced appropriate anchors which seemed to compress to tell the footprint nicely posteriorly but anteriorly we didn't have great coverage. All residual suture limbs were now clipped. We had good compression along the tendon posteriorly but anteriorly the tendon was just barely at the edge of the footprint articular interface. I injected 1 mL Renyte intra-articular. Instruments now removed from the portal sites. All portal sites were approximated with nylon suture. Sterile dressings were applied followed by a shoulder immobilizer. Fish PIRES assisted in this complex case. The patient was awakened, transferred to a bed, and taken to recovery in stable condition. Prognosis remains guarded regarding this complex case.
[2019-01-14 13:01] LABS: Glucose,Whole Blood 149 mg/dL (75-99)
[2019-01-14 14:01] VITALS: BP 133/85; PULSE 72
== END 2019-01-14 14:36 | disposition home or self-care (01) ==
LOC: OR 07:53
PROVIDERS: ATTEND Orthopaedic Surgery
DX: M75.102 Unspecified rotator cuff tear or rupture of left shoulder, not specified as traumatic (principal); M19.012 Primary osteoarthritis, left shoulder; M75.42 Impingement syndrome of left shoulder; S46.112A Strain of muscle, fascia and tendon of long head of biceps, left arm, initial encounter; S43.432A Superior glenoid labrum lesion of left shoulder, initial encounter; X58.XXXA Exposure to other specified factors, initial encounter; M25.712 Osteophyte, left shoulder; E11.9 Type 2 diabetes mellitus without complications; I25.10 Atherosclerotic heart disease of native coronary artery without angina pectoris; I10 Essential (primary) hypertension; E78.5 Hyperlipidemia, unspecified; N40.0 Benign prostatic hyperplasia without lower urinary tract symptoms; M19.90 Unspecified osteoarthritis, unspecified site; Z87.891 Personal history of nicotine dependence; I49.5 Sick sinus syndrome; I08.1 Rheumatic disorders of both mitral and tricuspid valves; G47.30 Sleep apnea, unspecified; Z99.89 Dependence on other enabling machines and devices; Z95.1 Presence of aortocoronary bypass graft; Z95.5 Presence of coronary angioplasty implant and graft; Z83.3 Family history of diabetes mellitus; Z82.3 Family history of stroke; Z82.49 Family history of ischemic heart disease and other diseases of the circulatory system; Z79.84 Long term (current) use of oral hypoglycemic drugs; Z79.82 Long term (current) use of aspirin; Z79.899 Other long term (current) drug therapy; Z79.1 Long term (current) use of non-steroidal anti-inflammatories (NSAID); Z88.8 Allergy status to other drugs, medicaments and biological substances
CPT/HCPCS: 64415; 29826; 29827; 29824; C1713 ×4; C1765; J2250; J1100; J0690; J2405; J2001; J3010; J2795; J0330; J2704